=== PATIENT | female | born 1945 | race Caucasian/White ===

== ENCOUNTER → 2018-03-01 | Day surgery (SDC) | payer OTHER ==
[~2018-03-01] MED LIST: ATORVASTATIN CA40 MG PO; DILTIAZEM 24HR240 MG PO; LANTUS SOL100 UNIT/1; LIPITOR20 MG PO; LOTREL 10-20 M1 EACH PO; METFORMIN HCL500 MG PO; PERCOCET 10-321 EACH PO
== END | disposition home or self-care (01) ==
LOC: CIR.AMB 06:34
DX: S52.532A Colles' fracture of left radius, initial encounter for closed fracture (principal)
CPT/HCPCS: 25609; 25118; 25280; L8699